=== PATIENT | female | born 1960 | race Caucasian/White ===

== ENCOUNTER 2018-10-15 08:03 | Day surgery (SDC) | payer OTHER ==
[~2018-10-15] VITALS: Ht 142.2 cm; Wt 90.0 kg
[2018-10-15] VITALS (27 sets, daily range): BP systolic 107–150; BP diastolic 58–100; PULSE 69–96; RESP 11–25; Ht 142.2 cm; Wt 90.0 kg
[~2018-10-15 08:03] MED LIST: CEFAZOLIN 2 GM/50 ML (PMX) 50 ML IVPB SCH; SOD CHLORIDE 0.9% 1,000 ML IV SCH
[2018-10-15] MEDS ORDERED: ROCURONIUM 50 MG INJ ONE (11:00)
--- NOTE | 2018-10-15 11:32 | PREAC ---
Date/Time of Note Date/Time of Note DATE: 10/15/18 TIME: 11:32 Anesthesia Eval and Record Evaluation Time Pre-Procedure Interview DATE: 10/15/18 TIME: 11:32 Age 58 Sex female NPO: 8 hrs Preoperative diagnosis right breast cancer Planned procedure right partial mastectomy Past Medical History Past Medical History: Includes Cardio: Dyslipidemia Endo: Other (pre DM ) GI: Obesity (bmi 39 ) Surgery & Anesthesia Issues No known issue Meds Anticoagulation: No Beta Barbie within 24 hr: No Reason Beta Barbie not given: Pt. not on B-Barbie Current Medications Sodium Chloride 1,000 ml @ 75 mls/hr [id number] IV ; Start 10/15/18 at 06:00; Stop 10/15/18 at 19:19 Cefazolin Sodium/ Dextrose 50 ml @ 100 mls/hr PREOP IVPB ; Start 10/15/18 at 06:00; Stop 10/15/18 at 19:00 Meds reviewed: Yes Allergies Coded Allergies: No Known Allergy (Unverified , 10/12/18) Allergies Reviewed: Yes Labs/Studies Labs Reviewed: Reviewed by anesthesiologist test: N/A Studies: ECG, CXR Pre-procedure Exam Airway: Adequate mouth opening, Adequate thyromental dist Mallampati: Mallampati II Teeth: Normal Lung: Normal Heart: Normal ASA Physical Status ASA physical status: 2 Emergency: None Planned Anesthetic General/MAC: LMA Planned Pain Management Parenteral pain med, Local by surgeon Pre-operative Attestations Prior to commencing anesthesia and surgery, the patient was re-evaluated, there was verification of: *The patient's identity *The results of appropriate recent lab work and preoperative vital signs *The above evaluation not changing prior to induction *Anesthetic plan, risk benefits, alternative and complications discussed with patient/family; questions answered; patient/family understands, accepts and wishes to proceed. KAMILLA MORENO Oct 15, 2018 11:32
[2018-10-15] MEDS ORDERED: MIDAZOLAM 1 MG/ML 2 ML INJ ONE (11:39)
[2018-10-15] MEDS ORDERED: PROPOFOL 20 ML ONE (11:39)
[2018-10-15] MEDS ORDERED: CEFAZOLIN 1 GM INJ ONE (11:39)
[2018-10-15] MEDS ORDERED: FENTAnyl 50 MCG/ML VIAL ONE ×2 (11:40→14:36)
[2018-10-15] MEDS ORDERED: LIDOCAINE 2% (SDV) 5 ML INJ ONE (11:40)
[2018-10-15] MEDS ORDERED: ISOSULFAN BLUE 1% 5 ML INJ SC ONE (12:43)
[2018-10-15] MEDS ORDERED: SUCCINYLCHOLINE CHLORIDE 100 MG/5 ML SYG IV ONE (13:45)
[2018-10-15] MEDS ORDERED: DEXAMETHASONE 4 MG/ML 5 ML INJ ONE (14:00)
[2018-10-15] MEDS ORDERED: METOCLOPRAMIDE 10 MG INJ ONE (14:00)
[2018-10-15] MEDS ORDERED: ONDANSETRON 4 MG INJ ONE (14:00)
[2018-10-15] MEDS ORDERED: EPHEDrine 25 MG/5 ML SYG ONE (14:12)
[2018-10-15] MEDS ORDERED: MEPERIDINE 25 MG INJ IV PRN (14:30)
[2018-10-15] MEDS ORDERED: ALBUTEROL 0.083% (NEB) 2.5 MG/3 ML AMP HHN PRN (14:30)
[2018-10-15] MEDS ORDERED: LABETALOL HCL 20MG INJ IV PRN (14:30)
[2018-10-15] MEDS ORDERED: OXYCODONE/ACETAMINOPHEN (5/325) TAB PO PRN ×2 (14:30)
[2018-10-15] MEDS ORDERED: hydrALAzine 20 MG INJ IV PRN ×2 (14:30→17:00)
[2018-10-15] MEDS ORDERED: HYDROmorphONE 1 MG/5 ML IV SYRINGE IV PRN ×3 (14:30)
[2018-10-15] MEDS ORDERED: SUGAMMADEX SODIUM 200 MG/2 ML VIAL IV ONE (15:03)
[2018-10-15] MEDS ORDERED: D5W-0.45 NACL + KCL 20 MEQ 1,000 ML IV SCH (15:19)
--- NOTE | 2018-10-15 15:19 | SIPON ---
Date/Time of Note Date/Time of Note DATE: 10/15/18 TIME: 15:18 Operative Report Preoperative Diagnosis Multicentric left breast cancer Postoperative Diagnosis Same Operation/Procedure Performed Left needle directed partial mastectomies x2 and axillary dissection utilizing sentinel lymph node technique Surgeon see signature line engineer first assistant Dr Carpenter Anesthesia: general Estimated blood loss: 10 - 50 ml's Transfusion Required none Specimen Left partial mastectomy specimens x2 and sentinel lymph node with additional axillary nodes Grafts/Implants none Complications none KATHRIN DE LA FUENTE MD Oct 15, 2018 15:19
[2018-10-15] MEDS ORDERED: morphine 2 MG INJ IV PRN ×2 (15:30→16:30)
[2018-10-15] MEDS ORDERED: ONDANSETRON 4 MG INJ IV PRN (15:30)
[2018-10-15] MEDS ORDERED: ACETAMINOPHEN 1000MG/100ML IV 100 ML IVPB PRN (15:30)
[2018-10-15] MEDS: ONDANSETRON 4 MG INJ IV PRN ×2 (15:57→16:42)
--- NOTE | 2018-10-15 16:00 | PAC ---
Date/Time of Note Date/Time of Note DATE: 10/15/18 TIME: 15:59 Post-Anesthesia Notes Post-Anesthesia Note Last documented vital signs BP 128/66 HR 90 spo2 100% temp 98.8 rr 16 Vital Signs Date Temp Pulse Resp B/P (MAP) Pulse Ox O2 O2 Flow FiO2 Time Delivery Rate 10/15/18 96.7 69 16 150/72 96 Room Air 13:27 (98) Activity: WNL Respiratory function: WNL Cardiovascular function: WNL Mental status: Baseline Pain reasonably controlled: Yes Hydration appropriate: Yes Nausea/Vomiting absent: Yes AKMILLA MORENO Oct 15, 2018 16:00
[2018-10-15] MEDS: SOD CHLORIDE 0.9% 1,000 ML IV SCH ×2 (16:01→17:34)
--- NOTE | 2018-10-15 16:18 | CONS ---
Assessment/Plan Assessment/Plan Hospital Course (Demo Recall) HPI Patient is a female with past medical history significant for prediabetes and questionable cholesterol issues who presents to [facility] for elective right breast partial mastectomy. Patient is currently in the postanesthesia care unit, has some mild dizziness and some nausea however otherwise feels okay. Patient only complains of mild pain in the surgical site area. Patient has no headache, no chest pain, no shortness of breath, no abdominal pain, no bowel or bladder dysfunction or leg pain Objective Physical exam General: Patient is laying in bed and answers questions appropriately Mentation: Patient is alert and oriented 4, Head: Normocephalic atraumatic Eyes: EOMI, pupils reactive to light Neck: Supple, nontender, midline Respiratory: Clear to auscultation bilaterally Cardiovascular: regular rate, no obvious murmurs Gastrointestinal: non-tender to palpation, bowel sounds heard. Neurological: Moves all extremities spontaneously Skin: Right breast surgical site, bandaged, CDI, drain in place Assessment and plan Breast cancer -Status post right-sided partial mastectomy and lymph node dissection -We will defer to for further outpatient management with surgeon respect to patient's likely breast cancer -Biopsies pending -Still has drain in, general surgery to manage -Pain control Dyslipidemia -Patient not on any meds -We will obtain lipid panel tomorrow morning Prediabetes -We will get A1c tomorrow morning Nausea vomiting -Very likely secondary to effects of anesthesia, use Zofran as needed Dizziness -Very mild, also very likely secondary to effects of anesthesia, on her closely, continue IV fluids Disposition -Surgeon wanted 24-hour observation overnight, likely discharge tomorrow if okay with general surgery. Consultation Date/Type/Reason Admit Date/Time Date/Time of Note DATE: 10/15/18 TIME: 16:18 Past Medical History Home Meds No Active Prescriptions or Reported Meds Medications Current Medications Sodium Chloride 1,000 ml @ 75 mls/hr [id number] IV ; Start 10/15/18 at 06:00; Stop 10/15/18 at 19:19 Cefazolin Sodium/ Dextrose 50 ml @ 100 mls/hr PREOP IVPB ; Start 10/15/18 at 06:00; Stop 10/15/18 at 19:00 Hydromorphone HCl (Dilaudid) 0.2 mg PACU PRN IV MILD PAIN 1-3; Start 10/15/18 at 14:30; Stop 10/15/18 at 19:30 Hydromorphone HCl (Dilaudid) 0.4 mg PACU PRN IV MOD PAIN 4-6; Start 10/15/18 at 14:30; Stop 10/15/18 at 19:30 Hydromorphone HCl (Dilaudid) 0.6 mg PACU PRN IV SEVERE PAIN 7-10 Last administered on 10/15/18at 15:56; Admin Dose 0.6 MG; Start 10/15/18 at 14:30; Stop 10/15/18 at 19:30 Oxycodone/ Acetaminophen (Percocet (5/ 325)) 1 tab PACU ORDER PRN PO .PAIN 1-5; Start 10/15/18 at 14:30; Stop 10/15/18 at 19:30 Oxycodone/ Acetaminophen (Percocet (5/ 325)) 2 tab PACU ORDER PRN PO .PAIN 6-10; Start 10/15/18 at 14:30; Stop 10/15/18 at 19:30 Ondansetron HCl (Zofran Inj) 4 mg PACU ORDER PRN IV NAUSEA/VOMITING Last administered on 10/15/18at 15:57; Admin Dose 4 MG; Start 10/15/18 at 14:30; Stop 10/15/18 at 19:30 Labetalol HCl (Labetalol) 5 mg PACU ORDER PRN IV HIGH BLOOD PRESSURE; Start 10/15/18 at 14:30; Stop 10/15/18 at 19:30 Hydralazine HCl (Apresoline) 5 mg PACU ORDER PRN IV HIGH BLOOD PRESSURE; Start 10/15/18 at 14:30; Stop 10/15/18 at 19:30 Albuterol (Proventil 0.083% (Neb)) 2.5 mg PACU ORDER PRN HHN .WHEEZING; Start 10/15/18 at 14:30; Stop 10/15/18 at 19:30 Meperidine HCl (Demerol) 25 mg PACU ORDER PRN IV .RIGORS; Start 10/15/18 at 14:30; Stop 10/15/18 at 19:30 Sodium Chloride 1,000 ml @ 50 mls/hr Q20H IV Last administered on 10/15/18at 16:01; Admin Dose 50 MLS/HR; Start 10/15/18 at 14:30 Ondansetron HCl (Zofran Inj) 4 mg Q6H PRN IV NAUSEA AND/OR VOMITING; Start 10/15/18 at 15:30 Acetaminophen 100 ml @ 400 mls/hr Q6H PRN IVPB PAIN; Start 10/15/18 at 15:30; Stop 10/16/18 at 15:29 IV Flush (NS 3 ml) 3 ml PER PROTOCOL IV ; Start 10/15/18 at 16:30 Acetaminophen (Tylenol Tab) 650 mg Q6H PRN PO .PAIN 1-3 OR TEMP; Start 10/15/18 at 16:30 Acetaminophen/ Hydrocodone Bitart ([place] (5/325)) 1 tab Q6H PRN PO .PAIN 4-6; Start 10/15/18 at 16:30 Morphine Sulfate (morphine) 2 mg Q4H PRN IV .PAIN 7-10; Start 10/15/18 at 16:30 Allergies: Coded Allergies: No Known Allergy (Unverified , 10/15/18) Social History Smoking Status: Never smoker Exam/Review of Systems Exam Vitals Vital Signs Date Temp Pulse Resp B/P (MAP) Pulse Ox O2 O2 Flow FiO2 Time Delivery Rate 10/15/18 96.7 69 16 150/72 96 Room Air 13:27 (98) Results Results 24hrs Laboratory Tests Test 10/15/18 08:34 Prothrombin Time 12.3 Prothrombin Time Ratio 1.0 INR International Normalized Ratio 0.90 Activated Partial Thromboplast Time 24.8 Medications Medication Current Medications Sodium Chloride 1,000 ml @ 75 mls/hr [id number] IV ; Start 10/15/18 at 06:00; Sto p 10/15/18 at 19:19 Cefazolin Sodium/ Dextrose 50 ml @ 100 mls/hr PREOP IVPB ; Start 10/15/18 at 06:00; Stop 10/15/18 at 19:00 Hydromorphone HCl (Dilaudid) 0.2 mg PACU PRN IV MILD PAIN 1-3; Start 10/15/18 at 14:30; Stop 10/15/18 at 19:30 Hydromorphone HCl (Dilaudid) 0.4 mg PACU PRN IV MOD PAIN 4-6; Start 10/15/18 at 14:30; Stop 10/15/18 at 19:30 Hydromorphone HCl (Dilaudid) 0.6 mg PACU PRN IV SEVERE PAIN 7-10 Last administered on 10/15/18at 15:56; Admin Dose 0.6 MG; Start 10/15/18 at 14:30; Stop 10/15/18 at 19:30 Oxycodone/ Acetaminophen (Percocet (5/ 325)) 1 tab PACU ORDER PRN PO .PAIN 1-5; Start 10/15/18 at 14:30; Stop 10/15/18 at 19:30 Oxycodone/ Acetaminophen (Percocet (5/ 325)) 2 tab PACU ORDER PRN PO .PAIN 6-10; Start 10/15/18 at 14:30; Stop 10/15/18 at 19:30 Ondansetron HCl (Zofran Inj) 4 mg PACU ORDER PRN IV NAUSEA/VOMITING Last administered on 10/15/18at 15:57; Admin Dose 4 MG; Start 10/15/18 at 14:30; Stop 10/15/18 at 19:30 Labetalol HCl (Labetalol) 5 mg PACU ORDER PRN IV HIGH BLOOD PRESSURE; Start at 14:30; Stop 10/15/18 at 19:30 Hydralazine HCl (Apresoline) 5 mg PACU ORDER PRN IV HIGH BLOOD PRESSURE; Start 10/15/18 at 14:30; Stop 10/15/18 at 19:30 Albuterol (Proventil 0.083% (Neb)) 2.5 mg PACU ORDER PRN HHN .WHEEZING; Start 10/15/18 at 14:30; Stop 10/15/18 at 19:30 Meperidine HCl (Demerol) 25 mg PACU ORDER PRN IV .RIGORS; Start 10/15/18 at 14:30; Stop 10/15/18 at 19:30 Sodium Chloride 1,000 ml @ 50 mls/hr Q20H IV Last administered on 10/15/18at 16:01; Admin Dose 50 MLS/HR; Start 10/15/18 at 14:30 Ondansetron HCl (Zofran Inj) 4 mg Q6H PRN IV NAUSEA AND/OR VOMITING; Start 10/15/18 at 15:30 Acetaminophen 100 ml @ 400 mls/hr Q6H PRN IVPB PAIN; Start 10/15/18 at 15:30; Stop 10/16/18 at 15:29 IV Flush (NS 3 ml) 3 ml PER PROTOCOL IV ; Start 10/15/18 at 16:30 Acetaminophen (Tylenol Tab) 650 mg Q6H PRN PO .PAIN 1-3 OR TEMP; Start 10/15/18 at 16:30 Acetaminophen/ Hydrocodone Bitart ([place] (5/325)) 1 tab Q6H PRN PO .PAIN 4-6; Start 10/15/18 at 16:30 Morphine Sulfate (morphine) 2 mg Q4H PRN IV .PAIN 7-10; Start 10/15/18 at 16:30 NATALIIA FERREIRA Oct 15, 2018 16:18
[2018-10-15] MEDS ORDERED: NACL 0.9% 3 ML SYG IV SCH (16:30)
[2018-10-15] MEDS ORDERED: HYDROCODONE/APAP (5/325) TAB PO PRN (16:30)
[2018-10-15] MEDS ORDERED: ACETAMINOPHEN 325 MG TAB PO PRN (16:30)
--- NOTE | 2018-10-15 22:51 | OPR ---
DATE OF OPERATION: 10/15/2018 PREOPERATIVE DIAGNOSIS: Multicentric right breast cancer. POSTOPERATIVE DIAGNOSIS: Multicentric right breast cancer. PROCEDURE: Needle-directed right partial mastectomies x2 and axillary dissection utilizing sentinel lymph node technique. ANESTHESIA: General. ANESTHESIOLOGIST: Nurse Vehicle Damage Appraiser Dutch Ortiz. SURGEON: Syed Izquierdo MD. ARCHIVIST MILITARY HISTORY: Martell Carpenter MD. INDICATIONS FOR PROCEDURE: The patient is a 58-year-old female. She underwent screening mammography and was found to have 2 suspicious lesions, one in the subareolar location the other high in the axillary tail. Initially, the axillary tail lesion was biopsied and thought to represent a metastatic lymph node. However, on further review it appeared to be more consistent with a second primary. The subareolar lesion was biopsied and also confirmed cancer. The patient was recommended to have a mastectomy; however, she did not agree to the mastectomy and wanted to attempt breast conservation. Therefore, she said she would consent for partial mastectomies x2 and axillary dissection. She consented and was scheduled for surgery. DESCRIPTION OF PROCEDURE: On the morning of surgery, the patient presented to [facility] where she underwent localization of the lesions performed by attending radiologist, Dr. Svetlana Concepcion. Subsequently, she was brought to the operating theater, placed under general anesthesia. The right breast was prepped and draped in usual sterile fashion. Attention was first directed to performing a sentinel lymph node biopsy. Approximately 3 to 4 mL of 1% Lymphazurin blue dye were injected peritumorally and in the path directly between the 2 tumors. The breast was gently massaged for approximately 12 minutes. A decision was made to create a curvilinear incision through the axilla which extended to the axillary tail so that the resection of the axillary tail tumor could be accomplished with the same incision. Subcutaneous tissue was then dissected with cautery down through the clavipectoral fascia. A dye- stained lymphatic was identified, traced to the sentinel lymph node. This node and several other lymph nodes in this region were then resected using a combination of the LigaSure device and cautery. Specimen was elevated. [place] lymph node was marked. It was sent for intraoperative analysis, which confirmed metastatic disease. A second node in the tissue was identified. This was closer to the axillary region. This lymph node did not reveal evidence of metastatic cancer. Dr. Izquierdo made the decision that significant lymph node sampling had been obtained and no further lymph nodes would be taken. The wound was then irrigated. Minimal bleeding was controlled with cautery. Then, the more inferior portion of the incision was extended to accomplish resection of the axillary tail tumor. This was accomplished with cautery. The specimen was elevated, transected, oriented, and sent for radiographic confirmation of capture. Capture was confirmed. The wound was then irrigated. Minimal bleeding was controlled with cautery. A #10 flat Jamey-Martin drain was then brought through the right mid axillary line. It was cut to size, laid within the axilla and secured in place with 2-0 nylon suture in standard fashion. The skin incision was then reapproximated with 4-0 Vicryl suture in subcuticular fashion. Attention was then directed to resecting the subareolar tumor. A periareolar incision was made from the 12 o'clock location through the 9 o'clock location to the 6 o'clock location. Subcutaneous tissue was dissected with cautery. The skin edges were elevated with skin hooks. Wide circumferential dissection of the tissue associated with the wire then took place, taking great care to ensure adequate margin. The specimen was elevated, transected, oriented, and sent for radiographic confirmation of capture. Capture was confirmed. Specimen was then sent for permanent pathologic analysis. The wound was irrigated. Minimal bleeding was controlled with cautery. The skin was then reapproximated with a deep dermal layer of 4-0 Vicryl sutures in interrupted fashion, followed by final skin approximation with 5-0 PDS sutures in subcuticular fashion. Dermabond was then applied to both incisions. The patient tolerated the procedure well. Total blood loss was approximately 50 mL. There were no complications and the patient was transported in stable condition to the recovery room where a circumferential compression dressing was applied. Dictated By: SYED CORTES/LUIS Conf#: [id number] DID#: [id number] RUBI
[2018-10-16 01:30] VITALS: BP 120/59; PULSE 74; RESP 18
[2018-10-16 03:32] VITALS: BP 128/68; PULSE 76; RESP 18
[2018-10-16 06:00] VITALS: BP 115/66; PULSE 74; RESP 16
[2018-10-16 07:38] VITALS: BP 99/50; PULSE 62; RESP 16
[2018-10-16] MEDS: SOD CHLORIDE 0.9% 1,000 ML IV SCH (10:34)
--- NOTE | 2018-10-16 12:39 | PN ---
Date/Time of Note Date/Time of Note DATE: 10/16/18 TIME: 12:37 Objective Vitals Vital Signs Date Temp Pulse Resp B/P (MAP) Pulse Ox O2 O2 Flow FiO2 Time Delivery Rate 10/16/18 98.2 62 16 99/50 (66) 94 07:38 10/16/18 Room Air 01:30 10/15/18 8.0 15:52 Intake and Output 10/15/18 10/15/18 10/16/18 1515:00 23:00 07:00 IntakeIntake Total 1800 ml 50 ml OutputOutput Total 10 ml 15 ml 50 ml BalanceBalance 1790 ml 35 ml -50 ml Results Result Diagram: 10/16/18 0557 10/16/18 0557 Medications Medications Current Medications Sodium Chloride 1,000 ml @ 50 mls/hr Q20H IV Last administered on 10/16/18at 10:34; Admin Dose 50 MLS/HR; Start 10/15/18 at 14:30 Ondansetron HCl (Zofran Inj) 4 mg Q6H PRN IV NAUSEA AND/OR VOMITING Last administered on 10/15/18at 22:38; Admin Dose 4 MG; Start 10/15/18 at 15:30 Acetaminophen 100 ml @ 400 mls/hr Q6H PRN IVPB PAIN; Start 10/15/18 at 15:30; Stop 10/16/18 at 15:29 IV Flush (NS 3 ml) 3 ml PER PROTOCOL IV ; Start 10/15/18 at 16:30 Acetaminophen (Tylenol Tab) 650 mg Q6H PRN PO .PAIN 1-3 OR TEMP Last administered on 10/16/18at 08:41; Admin Dose 650 MG; Start 10/15/18 at 16:30 Acetaminophen/ Hydrocodone Bitart ([place] (5/325)) 1 tab Q6H PRN PO .PAIN 4-6; Start 10/15/18 at 16:30 Morphine Sulfate (morphine) 2 mg Q4H PRN IV .PAIN 7-10; Start 10/15/18 at 16:30 Hydralazine HCl (Apresoline) 10 mg Q4H PRN IV sbp >160; Start 10/15/18 at 17:00 VTE Prophylaxis Risk score (from Nsg)>0 risk: 2 SCD applied (from Nsg): Yes Lines/Catheters IV Catheter Type: Riley in Place: No Assessment/Plan Hospital Course Subjective Still having some headache, other than that feels well Objective Physical exam General: Patient is laying in bed and answers questions appropriately Mentation: Patient is alert and oriented 4, Head: Normocephalic atraumatic Eyes: EOMI, pupils reactive to light Neck: Supple, nontender, midline Respiratory: Clear to auscultation bilaterally Cardiovascular: regular rate, no obvious murmurs Gastrointestinal: non-tender to palpation, bowel sounds heard. Neurological: Moves all extremities spontaneously Skin: Right breast surgical site, bandaged, CDI, drain in place Assessment and plan Breast cancer -Status post right-sided partial mastectomy and lymph node dissection -We will defer to for further outpatient management with surgeon respect to patient's likely breast cancer -Biopsies pending -Still has drain in, general surgery to manage -Pain control Dyslipidemia -Patient not on any meds -Patient has mild elevated cholesterol, [place] and [employer] risk calculator done, patient has no indication currently to have aspirin or statin therapy, it recommends diet and exercise. questionable hx of Prediabetes -Patient does not have prediabetes or diabetes, A1c is 5.6 Nausea vomiting, resolved -Very likely secondary to effects of anesthesia, use Zofran as needed Dizziness, resolved -Very mild, also very likely secondary to effects of anesthesia, on her closely, continue IV fluids Hypotension -Very mild, however monitor, continue IV fluids Disposition -If patient stable discharge tomorrow after home health is arranged for her drain care. NATALIIA FERREIRA Oct 16, 2018 12:39
[2018-10-16 14:07] VITALS: BP 100/57; PULSE 75; RESP 18
[2018-10-16 20:00] VITALS: BP 130/61; PULSE 68; RESP 19
[2018-10-17] VITALS: BP 110/60; PULSE 63; RESP 19
[2018-10-17 04:30] VITALS: BP 119/70; PULSE 62; RESP 18
[2018-10-17] MEDS: SOD CHLORIDE 0.9% 1,000 ML IV SCH (04:51)
[2018-10-17 07:45] VITALS: BP 134/84; PULSE 68; RESP 18
--- NOTE | 2018-10-17 09:13 | PN ---
DATE: 10/16/2018 SUBJECTIVE: Postop day #1. Status post right breast needle located partial mastectomy x2 and right breast axillary dissection using sentinel lymph node technique. SUBJECTIVE: No specific complaint but the medical service has been concerned about the patient's blood pressure has been on the low side. OBJECTIVE: GENERAL: Awake, alert and oriented, lying on bed, no acute distress. VITAL SIGNS: Temperature maximum today 98.2, heart rate 74, respirations 16, blood pressure 99/50 and also 115/66. Pulse oximetry saturation 94% room air. Sodium, potassium, BUN, creatinine within normal limits. Hematology: WBC 10,300 with 76% segmented. Hemoglobin 12, hematocrit 36.6. I and O's. There is 1 Jamey-Martin drain placed in the axillary area which has drained 65 mL fluid serosanguineous, more sanguineous from tunnel operation yesterday to 7 o'clock in the morning. The patient can move right upper extremity easily. She has been out of bed, went to the bathroom, but no bowel movement. Not walking and on the floor. HEART: Regular. LUNGS: Clear. Chest wall bias dressing is wrapped around the chest and is intact. It is not too tight. The other dressing is intact. PLAN: A 58-year-old female with 2 lesions in the right breast for which she underwent needle loc. partial mastectomy x2 and axillary dissection using sentinel LN. technique. The patient has been stable since operation, but the medical service had the feeling that the blood pressure is low and they were concerned. They want to keep the patient overnight and watch it and if everything is okay, probably can discharge her tomorrow. From a surgical point of view, she can be discharged any time is okay with medical service. Patient to follow with Dr. Izquierdo. Instructions for care of the Jamey-Martin drain was given to the patient's and the patient's daughter. Dictated By: DE STOCKTON/LUIS Conf#: [id number] DID#: [id number] RUBI
[2018-10-17] MEDS ORDERED: CEPH-443 PO (10:24)
--- NOTE | 2018-10-17 10:29 | PDOCDIS ---
Discharge Instructions CONDITION [id number] Patient Condition: [id number] Stable FOLLOW UP/APPOINTMENTS Follow-up Plan 1. Please follow-up with your general surgeon as soon as possible, your beth ointment is on Monday and 4 days. 2. Please follow instructions given by general surgery regarding drain care strictly, 3. Please follow-up with your primary care provider as soon as possible 4. Please follow-up with general surgeon regarding biopsy results NATALIIA FERREIRA Oct 17, 2018 10:29
--- NOTE | 2018-10-17 10:32 | DS ---
Date/Time of Note Date/Time of Note DATE: 10/17/18 TIME: 10:31 Discharge Summary Admission/Discharge Info Admit Date/Time Discharge Date/Time Patient Condition: Stable Hospital Course Patient is a female who presents to [facility] for elective partial mastectomy. Patient has suspected breast cancer and oncological surgeon performed partial mastectomy and lymph node dissection. Patient was monitored overnight from some pain and blood pressure issues and now will now be discharged safely as patient's vitals are now stable. Patient is to continue any medications at home and is to follow-up with her general surgeon within 3 to 4 days. Drain senior living health will be taken care of from rn case manager hospice perspective however surgeon also stated that the patient does not need home health drain care as he taught patient how to manage the drain himself and did not touch the bandage until seen by surgeon in 4 days. Discharge diagnosis Questionable breast cancer Dyslipidemia Questionable prediabetes, nondiabetic Nausea and vomiting, resolved Dizziness resolved hypotension, very mild, resolved Home Meds Active Scripts Cephalexin* (Keflex*) 500 Mg Capsule, 500 MG PO BID, #10 CAP Prov:NATALIIA FERREIRA 10/17/18 Follow-up Plan 1. Please follow-up with your general surgeon as soon as possible, your appointment is on Monday and 4 days. 2. Please follow instructions given by general surgery regarding drain care strictly, 3. Please follow-up with your primary care provider as soon as possible 4. Please follow-up with general surgeon regarding biopsy results Primary Care Provider Not On Staff Doctor Time spent on discharge: > 30 minutes Pending Labs Laboratory Tests Test 10/17/18 06:17 White Blood Count 9.9 10^3/ul (4.8-10.8) Red Blood Count 3.86 10^6/ul (4.20-5.40) Hemoglobin 12.2 g/dl (12.0-16.0) Hematocrit 36.6 % (37.0-47.0) Mean Corpuscular Volume 94.8 fl (82.0-101.0) Mean Corpuscular Hemoglobin 31.6 pg (29.0-33.0) Mean Corpuscular Hemoglobin Concent 33.3 g/dl (32.0-37.0) Red Cell Distribution Width 13.7 % (11.5-14.5) Platelet Count 159 10^3/UL (140-415) Mean Platelet Volume 12.0 fl (7.4-10.4) Immature Granulocytes % 0.200 % (0.001-0.429) Neutrophils % 51.4 % (39.0-77.0) Lymphocytes % 42.3 % (15.0-51.0) Monocytes % 5.4 % (0.0-11.0) Eosinophils % 0.4 % (0.0-7.0) Basophils % 0.3 % (0.0-2.0) Nucleated Red Blood Cells % 0.0 /100WBC (0.0-0.0) Immature Granulocytes # 0.020 10^3/ul (0.0-0.031) Neutrophils # 5.1 10^3/ul (1.6-7.5) Lymphocytes # 4.2 10^3/ul (0.8-2.9) Monocytes # 0.5 10^3/ul (0.3-0.9) Eosinophils # 0.0 10^3/ul (0.0-0.5) Basophils # 0.0 10^3/ul (0.0-0.1) Nucleated Red Blood Cells # 0.0 10^3/ul (0.0-0.0) Sodium Level 142 mmol/L (135-144) Potassium Level 3.9 mmol/L (3.5-5.1) Chloride Level 110 mmol/L (97-110) Carbon Dioxide Level 23 mmol/L (21-31) Anion Gap 9 (5-13) Blood Urea Nitrogen 11 mg/dl (7-20) Creatinine 0.58 mg/dl (0.44-1.00) Est Glomerular Filtrat Rate mL/min > 60 mL/min (>60) Glucose Level 97 mg/dl (70-220) Calcium Level 8.6 mg/dl (8.4-10.2) Phosphorus Level 3.6 mg/dl (2.5-4.9) Magnesium Level 2.0 mg/dl (1.7-2.5) NATALIIA FERREIRA Oct 17, 2018 10:32
== END 2018-10-17 11:45 | disposition home or self-care (01) ==
LOC: SDS 08:03 → PP2 15:34 → SUATTDRO 16:08 → UNDOADMIN 16:19 → REC 16:19 → PP2 17:10 → REC 17:10 → SDS 10-17 11:45
PROVIDERS: ATTEND Internal Medicine
DX: D05.11 Intraductal carcinoma in situ of right breast (principal); C77.3 Secondary and unspecified malignant neoplasm of axilla and upper limb lymph nodes; E78.5 Hyperlipidemia, unspecified; R73.03 Prediabetes; E66.9 Obesity, unspecified; Z68.39 Body mass index [BMI] 39.0-39.9, adult
CPT/HCPCS: 19301; 38500; 38792; 80048; 80053; 80061; 83036; 83735; 84100; 85025; 85610; 85730; 88307; 88331; J0690; J1100; J1170; J2250; J2405; J2765; J3010; J7030; Z7512; Z7610; Q9968